=== PATIENT | female | born 1985 | race Caucasian/White ===

== ENCOUNTER → 2017-01-05 | Outpatient (CLI) | payer MEDICAID | LOC: MW.CHOBGYN 14:57 | PROVIDERS: ATTEND Nurse Practitioner Women's Health | DX: L29.8 Other pruritus (principal); R35.0 Frequency of micturition | CPT/HCPCS: 81001; 87480; 87510; 87660 ==

== ENCOUNTER 2018-05-16 07:39 | Emergency (ER) | payer SELFPAY ==
[2018-05-16] MEDS ORDERED: Sodium Chloride 0.9% 10 ML Syringe FLUSH PRN (08:15)
[2018-05-16] MEDS ORDERED: Pantoprazole 40 MG Vial IVPUSH ONE (08:15)
[2018-05-16] MEDS ORDERED: Sodium Chloride 0.9% 2.5 ML Syringe FLUSH PRN (08:15)
[2018-05-16] MEDS ORDERED: HYDROmorphone 1 MG/ML Syringe IVPUSH ONE (08:15)
[2018-05-16] MEDS ORDERED: Sodium Chloride 0.9% 1,000 ML IV ONE ×2 (08:15→09:30)
[2018-05-16] MEDS ORDERED: Ondansetron 4 MG/2 ML SDV IVPUSH ONE (08:15)
--- NOTE | 2018-05-16 08:19 | EDM.PDOC ---
ED HPI GENERAL MEDICAL PROBLEM - General Chief Complaint: Abdominal Pain Stated Complaint: STOMACH PAINS Time Seen by Provider: 05/16/18 08:11 - History of Present Illness INITIAL COMMENTS - FREE TEXT/NARRATIVE: HISTORY AND PHYSICAL: History of present illness: The patient is a 33-year-old female with no GI history but has a significant past medical history for several ovarian cysts, 4 and a abdominal hysterectomy which left her ovaries and presents with mid abdominal pain that is diffuse and is more in the left upper quadrant that started last evening associated with nausea and vomiting that started today. The patient says she has no history of food intolerance and does not have heartburn often and last night started having this pain which gradually increased and she had one large vomitus this morning which she said had some red in it. Her last bowel movement was yesterday which was not black or bloody. She did not take any over-the- counter meds. Patient says this pain is not like or ovarian cysts in the past. She has had no chest pain or shortness of breath no urinary complaints and no flank pain. She describes the pain as a cramping deep pain. His note the patient has a history of type 2 diabetes and says that she has not taken her medications in several months Review of systems: As per history of present illness and below otherwise all systems reviewed and negative. Past medical history: As per history of present illness and as reviewed below otherwise noncontributory. Surgical history: As per history of present illness and as reviewed below otherwise noncontributory. Social history: No reported history of drug or alcohol abuse. Family history: As per history of present illness and as reviewed below otherwise noncontributory. Physical exam: General: Well-developed well-nourished mildly overweight female who is nontoxic and vital signs are noted by me. HEENT: Atraumatic, normocephalic, pupils reactive, negative for conjunctival pallor or scleral icterus, mucous membranes tacky, throat clear, neck supple, nontender, trachea midline. Lungs: Clear to auscultation, breath sounds equal bilaterally, chest nontender. Heart: S1S2, regular, negative for clicks, rubs, or JVD. Abdomen: Soft, nondistended, no tympany on percussion and bowel sounds are hypoactive, there is diffuse tenderness throughout the abdomen which is mild without rebound or guarding and there is more tenderness in the left upper quadrant Negative for masses or hepatosplenomegaly. Negative for costovertebral tenderness. Pelvis: Stable nontender. Genitourinary: Deferred. Rectal: Deferred. Extremities: Atraumatic, negative for cords or calf pain. Neurovascular unremarkable. Neuro: Awake, alert, oriented. Cranial nerves II through XII unremarkable. Cerebellum unremarkable. Motor and sensory unremarkable throughout. Exam nonfocal. Diagnostics: CBC CMP amylase lipase H. pylori UA CT scan of the abdomen and pelvis Therapeutics: IV fluids Zofran Dilaudid Protonix Toradol Discussed with the patient all testing results and need for follow-up. She says she goes to the family practice clinic and I've also discussed with her mentally following up for today's problems but also for her noncompliance with her type II diabetic medication. Impression: Abdominal pain stable Definitive disposition and diagnosis as appropriate pending reevaluation and review of above. abdomen Pain Score (Numeric/FACES): 7 - Related Data Allergies Allergy/AdvReac Type Severity Reaction Status Date / Time No Known Allergies Allergy Verified 05/16/18 09:09 Home Meds: Home Meds . 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 Musculoskeletal History: Reports: None Neurological History: Reports: Migraines, Neuropathy, Peripheral Psychiatric History: Reports: PTSD Other Psychiatric History: requested pre-adm sedation, surgeon notified Endocrine/Metabolic History: Reports: Diabetes, Type II, Obesity/BMI 30+ Hematologic History: Reports: None Immunologic History: Reports: None Oncologic (Cancer) History: Reports: None Dermatologic History: Reports: None - Infectious Disease History Infectious Disease History: Reports: None - Past Surgical History Female Surgical History: Reports: Section, Hysterectomy Social & Family History - Family History Family Medical History: Noncontributory - Caffeine Use Caffeine Use: Reports: Soda - Living Situation & Occupation Living situation: Reports: ED ROS GENERAL - Review of Systems Review Of Systems: ROS reveals no pertinent complaints other than HPI. ED EXAM, GENERAL - Physical Exam Exam: See Below (see dictation) Course - Vital Signs Last Recorded V/S: Last Vital Signs Temp 37.1 C 05/16/18 09:09 Pulse 81 05/16/18 09:56 Resp 18 05/16/18 09:56 BP 130/91 H 05/16/18 09:56 Pulse Ox 100 05/16/18 09:56 - Orders/Labs/Meds Orders: Active Orders 24 hr Category Date Time Status Abdomen Pelvis w Cont [CT] Stat Exams 05/16/18 08:15 Taken UA W/MICROSCOPIC [URIN] Stat Lab 05/16/18 08:39 Ordered Sodium Chloride 0.9% [Saline Flush] Med 05/16/18 08:15 Active 10 ml FLUSH ASDIRECTED PRN Sodium Chloride 0.9% [Saline Flush] Med 05/16/18 08:15 Active 2.5 ml FLUSH ASDIRECTED PRN Saline Lock Insert [OM.PC] Stat Oth 05/16/18 08:15 Ordered Medication Orders Sodium Chloride (Saline Flush) 10 ml FLUSH ASDIRECTED PRN PRN Reason: Keep Vein Open Last Admin: 05/16/18 10:04 Dose: 10 ml Sodium Chloride (Saline Flush) 2.5 ml FLUSH ASDIRECTED PRN PRN Reason: Keep Vein Open Last Admin: 05/16/18 10:04 Dose: 2.5 ml Labs: Laboratory Tests 05/16/18 05/16/18 05/16/18 Range/Units 07:46 08:39 08:39 WBC 6.53 (4.0-11.0) K/uL RBC 5.44 (4.30-5.90) M/uL Hgb 14.0 (12.0-16.0) g/dL Hct 41.1 (36.0-46.0) % MCV 75.6 L (80.0-98.0) fL MCH 25.7 L (27.0-32.0) pg MCHC 34.1 (31.0-37.0) g/dL RDW Std Deviation 38.3 (28.0-62.0) fl RDW Coeff of Tr 14 (11.0-15.0) % Plt Count 237 (150-400) K/uL MPV 11.40 (7.40-12.00) fL Neut % (Auto) 61.5 (48.0-80.0) % Lymph % (Auto) 27.1 (16.0-40.0) % [place] % (Auto) 7.5 (0.0-15.0) % Eos % (Auto) 3.4 (0.0-7.0) % Baso % (Auto) 0.5 (0.0-1.5) % Neut # (Auto) 4.0 (1.4-5.7) K/uL Lymph # (Auto) 1.8 (0.6-2.4) K/uL [place] # (Auto) 0.5 (0.0-0.8) K/uL Eos # (Auto) 0.2 (0.0-0.7) K/uL Baso # (Auto) 0.0 (0.0-0.1) K/uL Nucleated RBC % 0.0 /100WBC Nucleated RBCs # 0 K/uL Sodium (136-145) mmol/L Potassium (3.5-5.1) mmol/L Chloride (98-107) mmol/L Carbon Dioxide (21.0-32.0) mmol/L BUN (7.0-18.0) mg/dL Creatinine (0.6-1.0) mg/dL Est Cr Clr Drug Dosing mL/min Estimated GFR (MDRD) ml/min Glucose (74-106) mg/dL POC Glucose 328 H (60-110) mg/dL Calcium (8.5-10.1) mg/dL Total Bilirubin (0.2-1.0) mg/dL AST (15-37) IU/L ALT (14-63) IU/L Alkaline Phosphatase (46-116) U/L Total Protein (6.4-8.2) g/dL Albumin (3.4-5.0) g/dL Globulin (2.0-3.5) g/dL Albumin/Globulin Ratio (1.3-2.8) Amylase (25-115) U/L Lipase (73-393) U/L Urine Color YELLOW Urine Appearance CLEAR Urine pH 6.0 (5.0-8.0) Ur Specific [place] 1.025 (1.001-1.035) Urine Protein 100 (NEGATIVE) mg/dL Urine Glucose (UA) 500 H (NEGATIVE) mg/dL Urine Ketones >=80 (NEGATIVE) mg/dL Urine Occult Blood NEGATIVE (NEGATIVE) Urine Nitrite NEGATIVE (NEGATIVE) Urine Bilirubin NEGATIVE (NEGATIVE) Urine Urobilinogen 0.2 (<2.0) EU/dL Ur Leukocyte Esterase NEGATIVE (NEGATIVE) Urine RBC 0-2 (0-2/HPF) Urine WBC 0-2 (0-5/HPF) Ur Epithelial Cells FEW (NONE-FEW) Urine Bacteria FEW (NEGATIVE) Ketones (NEG) H. pylori IgG Antibody (NEG) 05/16/18 05/16/18 05/16/18 Range/Units 08:39 08:39 08:39 WBC (4.0-11.0) K/uL RBC (4.30-5.90) M/uL Hgb (12.0-16.0) g/dL Hct (36.0-46.0) % MCV (80.0-98.0) fL MCH (27.0-32.0) pg MCHC (31.0-37.0) g/dL RDW Std Deviation (28.0-62.0) fl RDW Coeff of Tr (11.0-15.0) % Plt Count (150-400) K/uL MPV (7.40-12.00) fL Neut % (Auto) (48.0-80.0) % Lymph % (Auto) (16.0-40.0) % [place] % (Auto) (0.0-15.0) % Eos % (Auto) (0.0-7.0) % Baso % (Auto) (0.0-1.5) % Neut # (Auto) (1.4-5.7) K/uL Lymph # (Auto) (0.6-2.4) K/uL [place] # (Auto) (0.0-0.8) K/uL Eos # (Auto) (0.0-0.7) K/uL Baso # (Auto) (0.0-0.1) K/uL Nucleated RBC % /100WBC Nucleated RBCs # K/uL Sodium 134 L (136-145) mmol/L Potassium 3.8 (3.5-5.1) mmol/L Chloride 101 (98-107) mmol/L Carbon Dioxide 25.6 (21.0-32.0) mmol/L BUN 11 (7.0-18.0) mg/dL Creatinine 0.7 (0.6-1.0) mg/dL Est Cr Clr Drug Dosing 103.82 mL/min Estimated GFR (MDRD) > 60.0 ml/min Glucose 326 H (74-106) mg/dL POC Glucose (60-110) mg/dL Calcium 8.4 L (8.5-10.1) mg/dL Total Bilirubin 0.3 (0.2-1.0) mg/dL AST 16 (15-37) IU/L ALT 20 (14-63) IU/L Alkaline Phosphatase 64 (46-116) U/L Total Protein 7.5 (6.4-8.2) g/dL Albumin 3.3 L (3.4-5.0) g/dL Globulin 4.2 H (2.0-3.5) g/dL Albumin/Globulin Ratio 0.8 L (1.3-2.8) Amylase 61 (25-115) U/L Lipase 78 (73-393) U/L Urine Color Urine Appearance Urine pH (5.0-8.0) Ur Specific [place] (1.001-1.035) Urine Protein (NEGATIVE) mg/dL Urine Glucose (UA) (NEGATIVE) mg/dL Urine Ketones (NEGATIVE) mg/dL Urine Occult Blood (NEGATIVE) Urine Nitrite (NEGATIVE) Urine Bilirubin (NEGATIVE) Urine Urobilinogen (<2.0) EU/dL Ur Leukocyte Esterase (NEGATIVE) Urine RBC (0-2/HPF) Urine WBC (0-5/HPF) Ur Epithelial Cells (NONE-FEW) Urine Bacteria (NEGATIVE) Ketones NEGATIVE (NEG) H. pylori IgG Antibody NEGATIVE (NEG) Meds: Medications Generic Name Dose Route Start Last Admin Trade Name Freq PRN Reason Stop Dose Admin Sodium Chloride 10 ml 05/16/18 08:15 05/16/18 10:04 Saline Flush FLUSH 10 ml ASDIRECTED PRN Administration Keep Vein Open Sodium Chloride 2.5 ml 05/16/18 08:15 05/16/18 10:04 Saline Flush FLUSH 2.5 ml ASDIRECTED PRN Administration Keep Vein Open Discontinued Medications Generic Name Dose Route Start Last Admin Trade Name Freq PRN Reason Stop Dose Admin Hydromorphone HCl 1 mg 05/16/18 08:15 05/16/18 08:53 Dilaudid IVPUSH 05/16/18 08:16 1 mg ONETIME ONE Administration Sodium Chloride 1,000 mls @ 999 mls/hr 05/16/18 08:15 05/16/18 08:53 Normal Saline IV 05/16/18 09:15 999 mls/hr STAT ONE Administration Sodium Chloride 1,000 mls @ 999 mls/hr 05/16/18 09:30 05/16/18 10:27 Normal Saline IV 05/16/18 10:30 999 mls/hr STAT ONE Administration Iopamidol 100 ml 05/16/18 10:01 05/16/18 10:02 Isovue-370 (76%) IVPUSH 05/16/18 10:02 100 ml ONETIME ONE Administration Ketorolac Tromethamine 30 mg 05/16/18 09:59 05/16/18 10:04 Toradol IVPUSH 05/16/18 10:00 30 mg ONETIME ONE Administration Ondansetron HCl 4 mg 05/16/18 08:15 05/16/18 08:53 Zofran IVPUSH 05/16/18 08:16 4 mg ONETIME ONE Administration Pantoprazole Sodium 80 mg 05/16/18 08:15 05/16/18 08:53 Protonix Iv IVPUSH 05/16/18 08:16 80 mg .BOLUS ONE Administration Departure - Departure Time of Disposition: 10:38 Disposition: Home, Self-Care 01 Condition: Good Clinical Impression: Abdominal pain Qualifiers: Abdominal location: generalized Qualified Code(s): R10.84 - Generalized abdominal pain - Discharge Information Referrals: PCP,None [Primary Care Provider] - Forms: ED Department Discharge Additional Instructions: The following information is given to patients seen in the emergency department who are being discharged to home. This information is to outline your options for follow-up care. We provide all patients seen in our emergency department with a follow-up referral. The need for follow-up, as well as the timing and circumstances, are variable depending upon the specifics of your emergency department visit. If you don't have a primary care physician on staff, we will provide you with a referral. We always advise you to contact your personal physician following an emergency department visit to inform them of the circumstance of the visit and for follow-up with them and/or the need for any referrals to a consulting specialist. The emergency department will also refer you to a specialist when appropriate. This referral assures that you have the opportunity for followup care with a specialist. All of these measure are taken in an effort to provide you with optimal care, which includes your followup. Under all circumstances we always encourage you to contact your private physician who remains a resource for coordinating your care. When calling for followup care, please make the office aware that this follow-up is from your recent emergency room visit. If for any reason you are refused follow-up, please contact the [facility] emergency department at and ask to speak to the emergency department charge nurse. [facility] Primary care- Internal Medicine and Family [facility] [address] Please call and schedule a follow-up appointment in the clinic as we discussed to restart your home medications and to follow-up today's visit. Push hydration and use medications as needed and prescribed. Return to ER as needed and as discussed. - My Orders Last 24 Hours: My Active Orders 05/16/18 08:15 Abdomen Pelvis w Cont [CT] Stat Sodium Chloride 0.9% [Saline Flush] 10 ml FLUSH ASDIRECTED PRN Sodium Chloride 0.9% [Saline Flush] 2.5 ml FLUSH ASDIRECTED PRN Saline Lock Insert [OM.PC] Stat 05/16/18 08:39 UA W/MICROSCOPIC [URIN] Stat - Assessment/Plan Last 24 Hours: My Active Orders 05/16/18 08:15 Abdomen Pelvis w Cont [CT] Stat Sodium Chloride 0.9% [Saline Flush] 10 ml FLUSH ASDIRECTED PRN Sodium Chloride 0.9% [Saline Flush] 2.5 ml FLUSH ASDIRECTED PRN Saline Lock Insert [OM.PC] Stat 05/16/18 08:39 UA W/MICROSCOPIC [URIN] Stat
[2018-05-16 09:15] LABS: CHLORIDE,CL 101 mmol/L (98-107); SODIUM,NA 134 mmol/L (136-145)
[2018-05-16] MEDS ORDERED: Ketorolac 30 MG/ML SDV IVPUSH ONE (09:59)
[2018-05-16] MEDS ORDERED: Iopamidol 755 Mg/ML 100 ML Bottle IVPUSH ONE (10:01)
[2018-05-16 11:32] VITALS: BP 126/81
--- NOTE | 2018-05-17 20:44 | CT ---
EXAM DATE: 05/16/18 PATIENT'S AGE: 33 Patient: ZAHIDA MANZO Facility: [place], [place] Site . Site : 1985 Study: CT Abdomen/Pelvis [id number]/8/2018 10:05:52 AM Ordering Physician: Naty Lawson Final Report: INDICATION: Abdominal pain, nausea, vomiting. TECHNIQUE: 3 mm axial imaging has been performed through the abdomen and pelvis after nonionic IV contrast. Sagittal and coronal reconstructions have been obtained. COMPARISON: 11/19/2016. FINDINGS: The lung bases are free of significant infiltrate. The liver, spleen, pancreas, bilateral adrenal glands are within normal limits. The kidneys demonstrate symmetric enhancement bilaterally. Retrocrural region retroperitoneum demonstrate no significant lymphadenopathy. Incidental retroaortic left renal vein is noted. The iliac romulo chain and groin demonstrate no significant lymphadenopathy. Patient is status post hysterectomy. There is a residual right ovary with an approximate 2 cm enhancing cyst. Left ovary is within normal limits. Moderate amount of retained stool demonstrated in the colon. No evidence for bowel obstruction. Trace amount of free fluid noted. Appendix is within normal limits. Mildly prominent mesenteric lymph nodes are identified in the right lower quadrant. The largest measures 1.8 x 1.2 cm. IMPRESSION: 1. No evidence for bowel obstruction. 2. No evidence for diverticulitis or appendicitis. There is a mildly prominent mesenteric lymph nodes, greatest in the right lower quadrant. 3. The upper abdominal organ survey is within normal limits. Previous 1.5 centimeter upper pole left cystic lesion has resolved. 4. Patient status post hysterectomy. Trace amount of free fluid noted. There is a small enhancing 2 cm cyst within the right ovary. Dictated by Bon Alcantara MD @ 05/16/2018 10:20:13 AM Please note that all CT scans at this facility use dose modulation, iterative reconstruction, and/or weight-based dosing when appropriate to reduce radiation dose to as low as reasonably achievable. Dictated by: Bon Alcantara MD @ 05/16/2018 10:20:17 (Electronic Signature) Report Signed by Proxy. [facility]
== END 2018-05-16 11:30 | disposition home or self-care (01) ==
LOC: MW.ED 07:39
DX: R10.12 Left upper quadrant pain (principal); I10 Essential (primary) hypertension; E11.9 Type 2 diabetes mellitus without complications; Z90.710 Acquired absence of both cervix and uterus
CPT/HCPCS: 36415; 74177; 80053; 81001; 82009; 82150; 82962; 83690; 85025; 86677; 96361; 96374; 96375; 99284; C9113; J1170; J1885; J2405; J7040; Q9967

== ENCOUNTER 2018-07-14 00:39 | Emergency (ER) | payer SELFPAY ==
[2018-07-14] MEDS ORDERED: Sodium Chloride 0.9% 1,000 ML IV ONE (00:51)
--- NOTE | 2018-07-14 00:51 | EDM.PDOC ---
ED HPI GENERAL MEDICAL PROBLEM - General Chief Complaint: General Stated Complaint: MEDICAL CLEARANCE- NEEDS INSULIN Time Seen by Provider: 07/14/18 00:49 - History of Present Illness INITIAL COMMENTS - FREE TEXT/NARRATIVE: HISTORY AND PHYSICAL: History of present illness: Patient 33-year-old female who presents in custody of law enforcement for medical screening exam and medical clearance for incarceration patient reports history of diabetes on arrival here blood sugar 360 she has no complaints Review of systems: As per history of present illness and below otherwise all systems reviewed and negative. Past medical history: As per history of present illness and as reviewed below otherwise noncontributory. Surgical history: As per history of present illness and as reviewed below otherwise noncontributory. Social history: No reported history of drug or alcohol abuse. Family history: As per history of present illness and as reviewed below otherwise noncontributory. Physical exam: HEENT: Atraumatic, normocephalic, pupils reactive, negative for conjunctival pallor or scleral icterus, mucous membranes moist, throat clear, neck supple, nontender, trachea midline. Lungs: Clear to auscultation, breath sounds equal bilaterally, chest nontender. Heart: S1S2, regular, negative for clicks, rubs, or JVD. Abdomen: Soft, nondistended, nontender. Negative for masses or hepatosplenomegaly. Negative for costovertebral tenderness. Pelvis: Stable nontender. Genitourinary: Deferred. Rectal: Deferred. Extremities: Atraumatic, negative for cords or calf pain. Neurovascular unremarkable. Neuro: Awake, alert, oriented. Cranial nerves II through XII unremarkable. Cerebellum unremarkable. Motor and sensory unremarkable throughout. Exam nonfocal. Diagnostics: CBC CMP venous blood gas Therapeutics: Normal saline 1 L bolus Impression: 1 medical screening exam in 2 history diabetes #3 medical clearance for incarceration Definitive disposition and diagnosis as appropriate pending reevaluation and review of above. 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 Musculoskeletal History: Reports: None Neurological History: Reports: Migraines, Neuropathy, Peripheral Psychiatric History: Reports: PTSD Other Psychiatric History: requested pre-adm sedation, surgeon notified Endocrine/Metabolic History: Reports: Diabetes, Type II, Obesity/BMI 30+ Hematologic History: Reports: None Immunologic History: Reports: None Oncologic (Cancer) History: Reports: None Dermatologic History: Reports: None - Infectious Disease History Infectious Disease History: Reports: None - Past Surgical History Female Surgical History: Reports: Section, Hysterectomy Social & Family History - Family History Family Medical History: Noncontributory - Caffeine Use Caffeine Use: Reports: Soda - Living Situation & Occupation Living situation: Reports: ED ROS GENERAL - Review of Systems Review Of Systems: ROS reveals no pertinent complaints other than HPI. ED EXAM, GENERAL - Physical Exam Exam: See Below (See dictation) Course - Vital Signs Last Recorded V/S: Last Vital Signs Temp 36.4 C 07/14/18 00:39 Pulse 104 H 07/14/18 00:39 Resp 18 07/14/18 00:39 BP 153/88 H 07/14/18 00:39 Pulse Ox 99 07/14/18 00:39 - Orders/Labs/Meds Orders: Active Orders 24 hr Category Date Time Status COMPREHENSIVE METABOLIC PN,CMP [CHEM] Stat Lab 07/14/18 01:00 Received Sodium Chloride 0.9% [Normal Saline] 1,000 ml Med 07/14/18 00:51 Active IV .Bolus Medication Orders Sodium Chloride (Normal Saline) 1,000 mls @ 999 mls/hr IV .Bolus ONE Stop: 07/14/18 01:51 Last Admin: 07/14/18 01:05 Dose: 999 mls/hr Labs: Laboratory Tests 07/14/18 07/14/18 Range/Units 01:00 01:00 WBC 6.22 (4.0-11.0) K/uL RBC 5.55 (4.30-5.90) M/uL Hgb 14.4 (12.0-16.0) g/dL Hct 41.6 (36.0-46.0) % MCV 75.0 L (80.0-98.0) fL MCH 25.9 L (27.0-32.0) pg MCHC 34.6 (31.0-37.0) g/dL RDW Std Deviation 36.5 (28.0-62.0) fl RDW Coeff of Tr 14 (11.0-15.0) % Plt Count 247 (150-400) K/uL MPV 11.00 (7.40-12.00) fL Neut % (Auto) 67.5 (48.0-80.0) % Lymph % (Auto) 23.2 (16.0-40.0) % [place] % (Auto) 7.6 (0.0-15.0) % Eos % (Auto) 1.4 (0.0-7.0) % Baso % (Auto) 0.3 (0.0-1.5) % Neut # (Auto) 4.2 (1.4-5.7) K/uL Lymph # (Auto) 1.4 (0.6-2.4) K/uL [place] # (Auto) 0.5 (0.0-0.8) K/uL Eos # (Auto) 0.1 (0.0-0.7) K/uL Baso # (Auto) 0.0 (0.0-0.1) K/uL VBG pH 7.36 (7.31-7.41) VBG pCO2 43 (35-45) mmHG VBG pO2 31 (30-40) mmHG VBG HCO3 25 (22-30) mEq/L VBG Total CO2 22 L (41-51) mmol/L VBG Base Excess -1.0 (-3.0-3.0) Meds: Medications Generic Name Dose Route Start Last Admin Trade Name Freq PRN Reason Stop Dose Admin Sodium Chloride 1,000 mls @ 999 mls/hr 07/14/18 00:51 07/14/18 01:05 Normal Saline IV 07/14/18 01:51 999 mls/hr .Bolus ONE Administration Departure - Departure Time of Disposition: :18 Disposition: Home, Self-Care 01 Condition: Good Clinical Impression: Medical clearance for incarceration, Encounter for medical screening examination, History of diabetes mellitus - Discharge Information *PRESCRIPTION DRUG MONITORING PROGRAM REVIEWED*: Not Applicable *COPY OF PRESCRIPTION DRUG MONITORING REPORT IN PATIENT CHATO: Not Applicable Referrals: PCP,None [Primary Care Provider] - Forms: ED Department Discharge Additional Instructions: The following information is given to patients seen in the emergency department who are being discharged to home. This information is to outline your options for follow-up care. We provide all patients seen in our emergency department with a follow-up referral. The need for follow-up, as well as the timing and circumstances, are variable depending upon the specifics of your emergency department visit. If you don't have a primary care physician on staff, we will provide you with a referral. We always advise you to contact your personal physician following an emergency department visit to inform them of the circumstance of the visit and for follow-up with them and/or the need for any referrals to a consulting specialist. The emergency department will also refer you to a specialist when appropriate. This referral assures that you have the opportunity for followup care with a specialist. All of these measure are taken in an effort to provide you with optimal care, which includes your followup. Under all circumstances we always encourage you to contact your private physician who remains a resource for coordinating your care. When calling for followup care, please make the office aware that this follow-up is from your recent emergency room visit. If for any reason you are refused follow-up, please contact the [facility] emergency department at and asked to speak to the emergency department charge nurse. Follow-up primary medical doctor KARLIE medications as directed Accu-Chek every 4 hours diabetic diet as discussed return as needed as discussed - My Orders Last 24 Hours: My Active Orders 07/14/18 00:51 Sodium Chloride 0.9% [Normal Saline] 1,000 ml IV .Bolus 07/14/18 01:00 COMPREHENSIVE METABOLIC PN,CMP [CHEM] Stat - Assessment/Plan Last 24 Hours: My Active Orders 07/14/18 00:51 Sodium Chloride 0.9% [Normal Saline] 1,000 ml IV .Bolus 07/14/18 01:00 COMPREHENSIVE METABOLIC PN,CMP [CHEM] Stat
[2018-07-14 01:38] LABS: CHLORIDE,CL 99 mmol/L (98-107); SODIUM,NA 134 mmol/L (136-145)
[2018-07-14 02:10] VITALS: BP 165/90
== END 2018-07-14 02:10 ==
LOC: MW.ED 00:39
DX: Z02.9 Encounter for administrative examinations, unspecified (principal); I10 Essential (primary) hypertension; E11.40 Type 2 diabetes mellitus with diabetic neuropathy, unspecified; E66.9 Obesity, unspecified
CPT/HCPCS: 36415; 80053; 82803; 82962; 85025; 96360; 99283; J7040

== ENCOUNTER 2019-03-15 16:53 | Emergency (ER) | payer SELFPAY ==
[2019-03-15 17:01] VITALS: BP 133/90
--- NOTE | 2019-03-15 17:02 | EDM.PDOC ---
ED HPI GENERAL MEDICAL PROBLEM - General Chief Complaint: Upper Extremity Injury/Pain Stated Complaint: PAIN IN THE LEFT HAND Time Seen by Provider: 03/15/19 16:56 Source of Information: Reports: Patient History Limitations: Reports: No Limitations - History of Present Illness INITIAL COMMENTS - FREE TEXT/NARRATIVE: HISTORY AND PHYSICAL: History of present illness: Patient is a 33-year-old female who presents to the emergency room with complaints of right hand pain. She states last evening she had punched through a wall. She now has pain at the MIP and PIP joint of the right hand, involving the third, fourth and fifth digit. She denies any other extremity involvement. Review of systems: As per history of present illness and below otherwise all systems reviewed and negative. Past medical history: As per history of present illness and as reviewed below otherwise noncontributory. Surgical history: As per history of present illness and as reviewed below otherwise noncontributory. Social history: See social history for further information Family history: As per history of present illness and as reviewed below otherwise noncontributory. Physical exam: General: Well-developed and well-nourished 33-year-old female. Alert and oriented. Nontoxic appearing and in no acute distress. HEENT: Atraumatic, normocephalic, pupils equal and reactive bilaterally, negative for conjunctival pallor or scleral icterus, mucous membranes moist, TMs normal bilaterally, throat clear, neck supple, nontender, trachea midline. No drooling or trismus noted. No meningeal signs. No hot potato voice noted. Lungs: Clear to auscultation, breath sounds equal bilaterally, chest nontender. Heart: S1S2, regular rate and rhythm without overt murmur Abdomen: Soft, nondistended, nontender. Negative for masses or hepatosplenomegaly. Negative for costovertebral tenderness. Pelvis: Stable nontender. Genitourinary: Deferred. Rectal: Deferred. Skin: Intact, warm, dry. No lesions or rashes noted. Extremities: Pain with palpation of the third, fourth and fifth digit at the MIP and PIP joints. Able to flex and extend all fingers. Capillary refill less than 3 seconds. Strong radial pulse. She moves all extremities per self without difficulty or deficits, negative for cords or calf pain. Neurovascular unremarkable. Neuro: Awake, alert, oriented. Cranial nerves II through XII unremarkable. Cerebellum unremarkable. Motor and sensory unremarkable throughout. Exam nonfocal. Notes: X-ray is unremarkable. Diclofenac for pain. Supportive care measures were reviewed and discussed. Voices understanding and is agreeable to plan of care. Denies any further questions or concerns at this time. Diagnostics: Hand x-ray Therapeutics: Toradol Prescription: Diclofenac Impression: Right hand injury Plan: 1. Rest, ice, elevate the affected extremity. Please wear the splint as directed. 2. Tylenol and/or Ibuprofen as needed for pain management. 3. Follow up with the Orthopedic provider as we discussed. Return to the ED as needed and as discussed. Definitive disposition and diagnosis as appropriate pending reevaluation and review of above. Right Hand Pain Score (Numeric/FACES): 8 - Related Data Allergies Allergy/AdvReac Type Severity Reaction Status Date / Time No Known Allergies Allergy Verified 03/15/19 17:01 Home Meds: Home Meds Insulin Aspart [NovoLOG] 0 units SQ ASDIRECTED 03/15/19 [History] Insulin Glarg,Human.Rec.Analog [Lantus] 40 unit SQ BID 03/15/19 [History] Sertraline [Zoloft] 100 mg PO DAILY 03/15/19 [History] hydrOXYzine HCl [hydrOXYzine] 1 tab PO BID PRN 03/15/19 [History] Past Medical History HEENT History: Reports: Impaired Vision Other HEENT History: wears glasses/comtacts Cardiovascular History: Reports: Hypertension Respiratory History: Reports: Asthma, Other (See Below) Other Respiratory History: pt states she's not been using her inhaler "for a long time now" Gastrointestinal History: Reports: Chronic Constipation Genitourinary History: Reports: Other (See Below) Other Genitourinary History: current kidney infection [employer] SPECIALIST History: Reports: Musculoskeletal History: Reports: None Neurological History: Reports: Migraines, Neuropathy, Peripheral Psychiatric History: Reports: Anxiety, Depression, PTSD Other Psychiatric History: requested pre-adm sedation, surgeon notified Endocrine/Metabolic History: Reports: Diabetes, Type II, Obesity/BMI 30+ Other Endocrine/Metabolic History: pt states she's not taking her DM medication "for a long time bnow" Hematologic History: Reports: None Immunologic History: Reports: None Oncologic (Cancer) History: Reports: None Dermatologic History: Reports: None - Infectious Disease History Infectious Disease History: Reports: Chicken Pox - Past Surgical History Head Surgeries/Procedures: Reports: None HEENT Surgical History: Reports: None Cardiovascular Surgical History: Reports: None Respiratory Surgical History: Reports: None GI Surgical History: Reports: None Female Surgical History: Reports: Section, Hysterectomy Endocrine Surgical History: Reports: None Neurological Surgical History: Reports: None Social & Family History - Family History Family Medical History: Noncontributory - Caffeine Use Caffeine Use: Reports: Coffee, Energy Drinks, Soda - Living Situation & Occupation Living situation: Reports: Review of Systems - Review of Systems Review Of Systems: ROS reveals no pertinent complaints other than HPI. ED EXAM, GENERAL - Physical Exam Exam: See Below (See dictation) Course - Vital Signs Last Recorded V/S: Last Vital Signs Temp 97.4 F 03/15/19 16:59 Pulse 99 03/15/19 16:59 Resp 18 03/15/19 16:59 BP 133/90 03/15/19 16:59 Pulse Ox 97 03/15/19 16:59 - Orders/Labs/Meds Meds: Medications Discontinued Medications Generic Name Dose Route Start Last Admin Trade Name Sophia PRN Reason Stop Dose Admin Ketorolac Tromethamine 60 mg 03/15/19 17:07 03/15/19 17:17 Toradol IM 03/15/19 17:08 60 mg ONETIME ONE Administration Departure - Departure Time of Disposition: 18:22 Disposition: Home, Self-Care 01 Clinical Impression: Injury of right hand Qualifiers: Encounter type: initial encounter Qualified Code(s): S69.91XA - Unspecified injury of right wrist, hand and finger(s), initial encounter - Discharge Information Referrals: Ulysses Knight MD [Primary Care Provider] - Forms: ED Department Discharge Additional Instructions: The following information is given to patients seen in the emergency department who are being discharged to home. This information is to outline your options for follow-up care. We provide all patients seen in our emergency department with a follow-up referral. The need for follow-up, as well as the timing and circumstances, are variable depending upon the specifics of your emergency department visit. If you don't have a primary care physician on staff, we will provide you with a referral. We always advise you to contact your personal physician following an emergency department visit to inform them of the circumstance of the visit and for follow-up with them and/or the need for any referrals to a consulting specialist. The emergency department will also refer you to a specialist when appropriate. This referral assures that you have the opportunity for follow-up care with a specialist. All of these measure are taken in an effort to provide you with optimal care, which includes your follow-up. Under all circumstances we always encourage you to contact your private physician who remains a resource for coordinating your care. When calling for follow-up care, please make the office aware that this follow-up is from your recent emergency room visit. If for any reason you are refused follow-up, please contact the [facility] Emergency Department at and asked to speak to the emergency department charge nurse. [facility] [address] [place] [id number] [address] [address] 1. Rest, ice, elevate the affected extremity. Please wear the splint as directed. 2. Tylenol and/or Ibuprofen as needed for pain management. 3. Follow up with the Orthopedic provider as we discussed. Return to the ED as needed and as discussed.
[2019-03-15] MEDS ORDERED: Ketorolac 60 MG/2 ML SDV IM ONE (17:07)
--- NOTE | 2019-03-15 18:15 | CR ---
INDICATION: PUNCHED A WALL, PAIN IN HAND TECHNIQUE: Right hand 3 views. COMPARISON: None. FINDINGS: Bones: Alignment is normal. No fractures or bone lesions. Joint spaces: Unremarkable. Soft tissues: Unremarkable. IMPRESSION: Unremarkable right hand. Dictated by: Taj Camp MD @ 03/15/2019 18:14:44 (Electronically Signed)
== END 2019-03-15 18:37 | disposition home or self-care (01) ==
LOC: MW.ED 16:53
DX: S69.91XA Unspecified injury of right wrist, hand and finger(s), initial encounter (principal); I10 Essential (primary) hypertension; J45.909 Unspecified asthma, uncomplicated; F41.9 Anxiety disorder, unspecified; F32.9 Major depressive disorder, single episode, unspecified; Z79.4 Long term (current) use of insulin; W22.01XA Walked into wall, initial encounter
CPT/HCPCS: 73130; 96372; 99283; J1885; 99282

== ENCOUNTER 2019-10-29 19:54 | Emergency (ER) | payer BC ==
[2019-10-29] MEDS ORDERED: Sodium Chloride 0.9% 1,000 ML IV ONE (20:32)
[2019-10-29] MEDS ORDERED: Acetaminophen 325 MG Tab PO ONE (20:32)
[2019-10-29 21:11] LABS: BLOOD UREA NITROGEN,BUN 12 mg/dL (7.0-18.0); CARBON DIOXIDE,CO2 25.9 mmol/L (21.0-32.0); CHLORIDE,CL 98 mmol/L (98-107); GLUCOSE RANDOM 416 mg/dL (74-106); POTASSIUM,K 4.1 mmol/L (3.5-5.1); SODIUM,NA 135 mmol/L (136-145)
[2019-10-29] MEDS ORDERED: Insulin Regular, Human 100 Units/ML 10 ML Vial IVPUSH ONE (21:17)
--- NOTE | 2019-10-29 21:25 | EDM.PDOC ---
ED [facility] GENERAL MEDICAL PROBLEM - General Chief Complaint: General Stated Complaint: MEDICAL CLEARANCE Time Seen by Provider: 10/29/19 20:15 Source of Information: Reports: Patient History Limitations: Reports: No Limitations - History of Present Illness INITIAL COMMENTS - FREE TEXT/NARRATIVE: Patient is 34-year-old female with past medical history of diabetes and methamphetamine abuse. Patient presents to the emergency department for general medical exam after being under arrest. Patient has minimal complaints at this time. 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 Patient states she is on antibiotics from her primary care doctor. Patient reports taking her medications as directed. Patient however has not been taking her insulin for the past few days. Patient has been using methamphetamine. Patient denies any IV drug abuse. Patient denies any nausea, vomiting, abdominal pain, diarrhea. Patient also denies fevers and myalgias. In addition to that documented in the HPI above, the additional ROS was obtained : Constitutional: Denies fevers or chills Eyes: Denies vision changes ENMT: Denies sore throat CV: Denies chest pain Resp: Denies SOB GI: Denies vomiting or diarrhea : Denies painful urination MSK: Denies recent trauma Skin: Denies new rashes Neuro: Denies new numbness or tingling or weakness Endocrine: Denies unexpected weight loss Heme: Denies bleeding disorders I have reviewed the triage vital signs Const: Well nourished, well developed, appears stated age Eyes: PERRL, no conjunctival injection HENT: NCAT, Neck supple without meningismus CV: RRR, Warm, well-perfused extremities RESP: CTAB, Unlabored respiratory effort GI: soft, non-tender, non-distended, no masses MSK: No gross deformities appreciated Skin: Left axilla demonstrates 3 small pustules which are hard to the touch and are not fluctuant. There is no surrounding erythema or warmth. Patient also has 1 pustule to her forehead which is not draining and has no erythema, redness , warmth. Warm, dry. 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 Sensation and motor function of extremities grossly intact. Psych: Appropriate mood and affect Left Axillary Pain Score (Numeric/FACES): 7 - Related Data Allergies Allergy/AdvReac Type Severity Reaction Status Date / Time No Known Allergies Allergy Verified 10/29/19 20:09 Home Meds: Home Meds Insulin Aspart [NovoLOG] 0 units SQ ASDIRECTED 03/15/19 [History] Insulin Glarg,Human.Rec.Analog [Lantus] 40 unit SQ BID 03/15/19 [History] Sertraline [Zoloft] 100 mg PO DAILY 03/15/19 [History] hydrOXYzine HCL [hydrOXYzine] 1 tab PO BID PRN 03/15/19 [History] Past Medical History HEENT History: Reports: Impaired Vision Other HEENT History: wears glasses/comtacts Cardiovascular History: Reports: Hypertension Respiratory History: Reports: Asthma, Other (See Below) Other Respiratory History: pt states she's not been using her inhaler "for a long time now" Gastrointestinal History: Reports: Chronic Constipation Genitourinary History: Reports: Other (See Below) Other Genitourinary History: current kidney infection [employer] History: Reports: Musculoskeletal History: Reports: None Neurological History: Reports: Migraines, Neuropathy, Peripheral Psychiatric History: Reports: Anxiety, Depression, PTSD Other Psychiatric History: requested pre-adm sedation, surgeon notified Endocrine/Metabolic History: Reports: Diabetes, Type II, Obesity/BMI 30+ Other Endocrine/Metabolic History: pt states she's not taking her DM medication "for a long time bnow" Hematologic History: Reports: None Immunologic History: Reports: None Oncologic (Cancer) History: Reports: None Dermatologic History: Reports: None - Infectious Disease History Infectious Disease History: Reports: MRSA - Past Surgical History Head Surgeries/Procedures: Reports: None HEENT Surgical History: Reports: None Cardiovascular Surgical History: Reports: None Respiratory Surgical History: Reports: None GI Surgical History: Reports: None Female Surgical History: Reports: Section, Hysterectomy Endocrine Surgical History: Reports: None Neurological Surgical History: Reports: None Social & Family History - Family History Family Medical History: Noncontributory Endocrine/Metabolic: Reports: Diabetes, Type I - Caffeine Use Caffeine Use: Reports: Soda - Recreational Drug Use Recreational Drug Use: Yes Recreational Drug Type: Reports: Methamphetamine - Living Situation & Occupation Living situation: Reports: ED ROS GENERAL - Review of Systems Review Of Systems: See Below ED EXAM, GENERAL - Physical Exam Exam: See Below Course - Vital Signs Last Recorded V/S: Last Vital Signs Temp 36.3 C 10/29/19 21:59 Pulse 88 10/29/19 21:59 Resp 12 10/29/19 21:59 BP 140/90 10/29/19 21:59 Pulse Ox 100 10/29/19 21:59 - Orders/Labs/Meds Labs: Laboratory Tests 10/29/19 10/29/19 10/29/19 Range/Units 20:46 20:46 20:46 WBC 8.22 (4.0-11.0) K/uL RBC 5.22 (4.30-5.90) M/uL Hgb 13.9 (12.0-16.0) g/dL Hct 40.0 (36.0-46.0) % MCV 76.6 L (80.0-98.0) fL MCH 26.6 L (27.0-32.0) pg MCHC 34.8 (31.0-37.0) g/dL RDW Std Deviation 36.9 (28.0-62.0) fl RDW Coeff of Tr 13 (11.0-15.0) % Plt Count 267 (150-400) K/uL MPV 11.30 (7.40-12.00) fL Neut % (Auto) 74.6 (48.0-80.0) % Lymph % (Auto) 17.9 (16.0-40.0) % [place] % (Auto) 5.6 (0.0-15.0) % Eos % (Auto) 1.5 (0.0-7.0) % Baso % (Auto) 0.4 (0.0-1.5) % Neut # (Auto) 6.1 H (1.4-5.7) K/uL Lymph # (Auto) 1.5 (0.6-2.4) K/uL [place] # (Auto) 0.5 (0.0-0.8) K/uL Eos # (Auto) 0.1 (0.0-0.7) K/uL Baso # (Auto) 0.0 (0.0-0.1) K/uL Nucleated RBC % 0.0 /100WBC Nucleated RBCs # 0 K/uL VBG pH 7.38 (7.31-7.41) VBG pCO2 45 (35-45) mmHG VBG pO2 47 H (30-40) mmHG VBG HCO3 26 (22-30) mEq/L VBG Total CO2 24 L (41-51) mmol/L VBG Base Excess 0.8 (-3.0-3.0) Sodium 135 L (136-145) mmol/L Potassium 4.1 (3.5-5.1) mmol/L Chloride 98 (98-107) mmol/L Carbon Dioxide 25.9 (21.0-32.0) mmol/L BUN 12 (7.0-18.0) mg/dL Creatinine 0.9 (0.6-1.0) mg/dL Est Cr Clr Drug Dosing 80.00 mL/min Estimated GFR (MDRD) > 60.0 ml/min Glucose 416 H (74-106) mg/dL POC Glucose (60-110) mg/dL Calcium 9.3 (8.5-10.1) mg/dL Ketones (NEG) 10/29/19 10/29/19 Range/Units 20:46 21:50 WBC (4.0-11.0) K/uL RBC (4.30-5.90) M/uL Hgb (12.0-16.0) g/dL Hct (36.0-46.0) % MCV (80.0-98.0) fL MCH (27.0-32.0) pg MCHC (31.0-37.0) g/dL RDW Std Deviation (28.0-62.0) fl RDW Coeff of Tr (11.0-15.0) % Plt Count (150-400) K/uL MPV (7.40-12.00) fL Neut % (Auto) (48.0-80.0) % Lymph % (Auto) (16.0-40.0) % [place] % (Auto) (0.0-15.0) % Eos % (Auto) (0.0-7.0) % Baso % (Auto) (0.0-1.5) % Neut # (Auto) (1.4-5.7) K/uL Lymph # (Auto) (0.6-2.4) K/uL [place] # (Auto) (0.0-0.8) K/uL Eos # (Auto) (0.0-0.7) K/uL Baso # (Auto) (0.0-0.1) K/uL Nucleated RBC % /100WBC Nucleated RBCs # K/uL VBG pH (7.31-7.41) VBG pCO2 (35-45) mmHG VBG pO2 (30-40) mmHG VBG HCO3 (22-30) mEq/L VBG Total CO2 (41-51) mmol/L VBG Base Excess (-3.0-3.0) Sodium (136-145) mmol/L Potassium (3.5-5.1) mmol/L Chloride (98-107) mmol/L Carbon Dioxide (21.0-32.0) mmol/L BUN (7.0-18.0) mg/dL Creatinine (0.6-1.0) mg/dL Est Cr Clr Drug Dosing mL/min Estimated GFR (MDRD) ml/min Glucose (74-106) mg/dL POC Glucose 298 H (60-110) mg/dL Calcium (8.5-10.1) mg/dL Ketones NEGATIVE (NEG) Meds: Medications Discontinued Medications Generic Name Dose Route Start Last Admin Trade Name Jorjeq PRN Reason Stop Dose Admin Acetaminophen 650 mg 10/29/19 20:32 10/29/19 20:52 Tylenol PO 10/29/19 20:33 650 mg NOW ONE Administration Sodium Chloride 1,000 mls @ 1,000 mls/hr 10/29/19 20:32 10/29/19 20:51 Normal Saline IV 10/29/19 21:31 1,000 mls/hr .Bolus ONE Administration Insulin Human Regular 6 unit 10/29/19 21:17 10/29/19 21:30 Novolin R IVPUSH 10/29/19 21:18 6 unit ONETIME ONE Administration Protocol Departure - Departure Time of Disposition: 22:02 Disposition: Home, Self-Care 01 Clinical Impression: Encounter for medical screening examination - Discharge Information Instructions: Hyperglycemia, [id number] Referrals: PCP,None [Primary Care Provider] - Forms: ED Department Discharge Additional Instructions: The following information is given to patients seen in the emergency department who are being discharged to home. This information is to outline your options for follow-up care. We provide all patients seen in our emergency department with a follow-up referral. The need for follow-up, as well as the timing and circumstances, are variable depending upon the specifics of your emergency department visit. If you don't have a primary care physician on staff, we will provide you with a referral. We always advise you to contact your personal physician following an emergency department visit to inform them of the circumstance of the visit and for follow-up with them and/or the need for any referrals to a consulting specialist. The emergency department will also refer you to a specialist when appropriate. This referral assures that you have the opportunity for follow-up care with a specialist. All of these measure are taken in an effort to provide you with optimal care, which includes your follow-up. Under all circumstances we always encourage you to contact your private physician who remains a resource for coordinating your care. When calling for follow-up care, please make the office aware that this follow-up is from your recent emergency room visit. If for any reason you are refused follow-up, please contact the [facility] Emergency Department at and asked to speak to the emergency department charge nurse. Continue taking antibiotics as directed by her primary care physician. Continue taking insulin as directed by primary care physician. Return to the emergency department immediately for high fevers, worsening pain, worsening swelling of your armpit. Sepsis Event Note - Evaluation Sepsis Screening Result: No Definite Risk - Focused Exam Vital Signs: Vital Signs Temp Pulse Resp BP Pulse Ox 10/29/19 21:59 36.3 C 88 12 140/90 100 10/29/19 20:09 18 Date Exam was Performed: 10/29/19 Time Exam was Performed: 22:02 - Assessment/Plan Assessment:: Patient is 34-year-old female with presentation of medical exam. Patient fingerstick in the emergency department is 462. Patient has a MRSA infection but does not have any evidence of drainable abscess at this time. Patient is not intoxicated at this time. Given the elevated blood sugar, will check labs for evidence of electrolyte abnormalities. The labs were unremarkable. Patient 's pain is controlled. Patient did not demonstrate any evidence of systemic infection which can lead to elevated blood sugar. Likely cause of elevated blood sugar at this time is noncompliance with medication and drug abuse. Counseled on the importance of drug cessation and the need to follow-up with outpatient primary care physician for diabetes management as well as chronic infection. All questions addressed and answered. Patient agrees with plan
[2019-10-29 22:00] VITALS: BP 140/90; PULSE 88
== END 2019-10-29 22:16 ==
LOC: MW.ED 19:54 → EEVIPCON 19:54 → MW.ED 22:16
DX: Z00.00 Encounter for general adult medical examination without abnormal findings (principal); E11.40 Type 2 diabetes mellitus with diabetic neuropathy, unspecified; I10 Essential (primary) hypertension; Z79.4 Long term (current) use of insulin
CPT/HCPCS: 36415; 80048; 82009; 82803; 82962; 85025; 96360; 99283; A9270; J7030; J1815-GY